=== PATIENT | female | born 1965 ===

== ENCOUNTER 2023-03-17 22:43 | Inpatient (IN) ==
[2023-03-17] MEDS ORDERED: Ondansetron 4 mg VIAL 2 MG/ML 2 ml VIAL IV PRN (23:51)
[2023-03-18] MEDS ORDERED: Heparin DRIP 25,000 UNITS BAG 25,000 UNITS/500 ML BAG IV SCH (00:15)
[2023-03-18 00:21] LABS: ABS Lymphocytes 1.6 10^3/uL (1.0-4.8); ABS Monocytes 0.3 10^3/uL (0.0-0.9); ABS Neutrophils 4.1 10^3/uL (1.5-7.6); ABS Nucleated RBC 0.01 10^3/ul; Eosinophil % 0.3 %; Hemoglobin 14.9 g/dL (11.5-14.3); Lymphocyte % 26.6 %; Mean Corpuscular Hemoglobin 33.3 pg (27-33); Mean Corpuscular Hgb Conc 35.5 g/dL (31-36); Mean Corpuscular Volume 93.9 fL (80-97); Mean Platelet Volume 8.1 fL (7.5-11.2); Nucleated Red Blood Cells % 0.1 %/100WBC (0.0-0.8); Platelet Count 237 10^3/uL (150-450); Red Blood Count 4.48 10^6/uL (3.63-4.92); Red Cell Distribution Width 12.9 % (12-17); White Blood Count 6.1 10^3/uL (3.8-11.8)
[2023-03-18 00:39] LABS: Albumin 4.3 g/dL (3.2-5.2); Albumin/Globulin Ratio 1.4 (1-3); Calcium 9.1 mg/dL (8.6-10.3); Creatinine, Serum 0.83 mg/dL (0.51-0.95); Potassium 4.2 mmol/L (3.5-5.0); Total Bilirubin 0.5 mg/dL (0.2-1.0); Total Protein 7.3 g/dL (6.4-8.9); eGFR CKD-EPI 83.2 (>60)
[2023-03-18 00:43] LABS: Activated Partial Thrombo Time 176.8 seconds (26.0-38.0); INR 1.06 (0.83-1.13)
[2023-03-18] MEDS ORDERED: Heparin 5000 UNITS/ML 1 mL VIAL IV SCH (01:00)
[2023-03-18 01:22] LABS: Erythrocyte Sed Rate 5 mm/Hr (0-29)
[2023-03-18 01:30] LABS: High Sensitivity Troponin 1 Hr 616 pg/mL (<15)
[2023-03-18 01:48] LABS: Rapid COVID-19 Molecular Undetected (Undetected)
[2023-03-18 06:36] LABS: ABS Lymphocytes 1.2 10^3/uL (1.0-4.8); ABS Monocytes 0.4 10^3/uL (0.0-0.9); ABS Neutrophils 7.3 10^3/uL (1.5-7.6); Hematocrit 39.8 % (35-45); Hemoglobin 14.4 g/dL (11.5-14.3); Lymphocyte % 13.4 %; Mean Corpuscular Hemoglobin 33.7 pg (27-33); Mean Corpuscular Hgb Conc 36.3 g/dL (31-36); Platelet Count 238 10^3/uL (150-450); Red Blood Count 4.28 10^6/uL (3.63-4.92)
[2023-03-18 06:45] LABS: Potassium 3.8 mmol/L (3.5-5.0)
[2023-03-18 06:51] LABS: Creatinine, Serum 0.78 mg/dL (0.51-0.95); HDL Cholesterol 47.5 mg/dL; eGFR CKD-EPI 89.6 (>60)
[2023-03-18] MEDS ORDERED: Iohexol 350 (CONTRAST) 500 ML MDV IV ONE (10:00)
[2023-03-18 10:38] LABS: ABS Lymphocytes 1.9 10^3/uL (1.0-4.8); ABS Monocytes 0.4 10^3/uL (0.0-0.9); ABS Neutrophils 4.7 10^3/uL (1.5-7.6); Hematocrit 41.6 % (35-45); Hemoglobin 14.7 g/dL (11.5-14.3); Lymphocyte % 26.7 %; Mean Corpuscular Hemoglobin 33.2 pg (27-33); Mean Corpuscular Hgb Conc 35.4 g/dL (31-36); Mean Corpuscular Volume 93.9 fL (80-97); Mean Platelet Volume 8.1 fL (7.5-11.2); Nucleated Red Blood Cells % 0.1 %/100WBC (0.0-0.8); Platelet Count 227 10^3/uL (150-450); Red Blood Count 4.44 10^6/uL (3.63-4.92); Red Cell Distribution Width 12.8 % (12-17)
[2023-03-18 10:50] LABS: Activated Partial Thrombo Time 93.9 seconds (26.0-38.0); INR 1.05 (0.83-1.13)
[2023-03-18] MEDS ORDERED: fentaNYL 100 mcg/2 ml 50 MCG/ML VIAL IV SLOW PU ONE (11:09)
[2023-03-18] MEDS ORDERED: Midazolam 10 mg/10 ml VIAL 1 mg/ml 10 ml VIAL (10 mg) IV SLOW PU ONE (11:09)
[2023-03-18 11:16] LABS: High Sensitivity Troponin 1 Hr 2085 pg/mL (<15)
[2023-03-18] MEDS ORDERED: Heparin 1,000 UNIT/ML 10 ml (10,000 UNITS) CATHLAB/DIALYSIS ONE (11:34)
[2023-03-18] MEDS ORDERED: VERAPAMIL 2.5 MG/ML 2 ML VIAL ** 5 mg/2 ml ONE (11:34)
[2023-03-18] MEDS ORDERED: nitroGLYCERIN DRIP 25,000 MCG/250 ML BTL ONE (11:35)
[2023-03-18] MEDS ORDERED: Lidocaine 1% MPF 5 ML VIAL ONE (11:35)
[2023-03-18] MEDS ORDERED: Heparin 2 UNITS/ML 1000 mls 2,000 ML IV ONE (11:35)
[2023-03-18] MEDS ORDERED: Midazolam 5 mg/5 ml VIAL 1 mg/ml 5 ml VIAL (5 mg) ONE (11:36)
[2023-03-18] MEDS ORDERED: Iohexol 350 (CONTRAST) 100 ML PAK IV ONE (11:36)
[2023-03-18] MEDS ORDERED: fentaNYL 100 mcg/2 ml 50 MCG/ML VIAL ONE (11:36)
[2023-03-18] MEDS ORDERED: NS 0.9% 1000 ml BAG 1,000 ML IV SCH (12:30)
[2023-03-18 12:48] LABS: Calcium 9.2 mg/dL (8.6-10.3); Potassium 3.7 mmol/L (3.5-5.0)
[2023-03-18 12:53] LABS: Creatinine, Serum 0.81 mg/dL (0.51-0.95); eGFR CKD-EPI 85.7 (>60)
[2023-03-18 18:16] VITALS: BP 110/66
[2023-03-18] MEDS ORDERED: Psyllium PAK PO SCH (21:00)
== END 2023-03-18 20:15 | disposition home or self-care (01) | DRG 190 ==
LOC: MEDTELE 23:34 → SUATTDRO 23:51 → MEDTELE 03-18 00:59
PROVIDERS: ADMIT Internal Medicine; ATTEND Family Medicine